=== PATIENT | male | born 1985 | race Two or more races ===

== ENCOUNTER 2017-03-09 08:10 | Emergency (ER) | payer OTHER ==
[~2017-03-09] VITALS: Ht 175.3 cm; Wt 60.8 kg
[2017-03-09 08:20] VITALS: BP 115/65
--- NOTE | 2017-03-09 08:46 | NUR ---
PATIENT TO ED DT COUGH AND CONGESTION X 1 WEEK WITH EPISODE OF SOB LAST NIGHT. PATIENT IS AAO4. APPEARS IN NO APPARENT DISTRESS. RESPIRATION EVEN AND UNLABORED. SKIN IS WARM TO TOUCH AND NON DIAPHORETIC. AFEBRILE. VSS
== END 2017-03-09 09:01 | disposition home or self-care (01) ==
LOC: ER 08:11
DX: J45.998 Other asthma (principal); R05 Cough
CPT/HCPCS: 99283; A4606; Z7610

== ENCOUNTER 2019-03-02 23:40 | Emergency (ER) | payer OTHER ==
[~2019-03-02] VITALS: Ht 177.8 cm; Wt 81.6 kg
[2019-03-03] MEDS ORDERED: ALBUTEROL FS 2.5 MG/0.5 ML VIAL.NEB NEB ONE
[2019-03-03] MEDS ORDERED: ALBUTEROL FS 2.5 MG/0.5 ML VIAL.NEB ONE (00:09)
[2019-03-03 01:39] VITALS: BP 120/83
== END 2019-03-03 01:40 | disposition home or self-care (01) ==
LOC: ER 23:41
DX: J30.2 Other seasonal allergic rhinitis (principal); Z88.0 Allergy status to penicillin
CPT/HCPCS: 71045-TC

== ENCOUNTER 2019-03-15 13:45 | Emergency (ER) | payer OTHER ==
[~2019-03-15] VITALS: Ht 175.3 cm; Wt 90.7 kg
--- NOTE | 2019-03-15 14:00 | NUR ---
Pt sent frm urgent care. advised ct scan to r/o pharyngeal abscess. sore throat, fever x 3 days. Pt aaox4, vss, respirations even and unlabored on room air w/ nad. Pt connected to the monitor.
[2019-03-15] MEDS ORDERED: KETOROLAC TROMETHAMINE INJ 30 MG/ML VIAL ONE (14:10)
[2019-03-15 14:14] LABS: BASOPHILS # (AUTO) 0.1 /CMM (0.0-0.2); BASOPHILS % (AUTO) 0.7 % (0.0-2.0); EOSINOPHILS % (AUTO) 4.8 % (0.0-6.0); HEMATOCRIT 43 % (39-51); HEMOGLOBIN 14.1 g/dL (13.5-17.5); LYMPHOCYTES # (AUTO) 1.5 /CMM (0.8-4.8); MEAN CORPUSCULAR HGB CONC 33 g/dl (31.0-36.0); MEAN CORPUSCULAR VOLUME 85 fL (80-96); MONOCYTES # (AUTO) 0.7 /CMM (0.1-1.30); MONOCYTES % (AUTO) 6.4 % (2.0-12.0); NEUTROPHILS # (AUTO) 8.4 /CMM (1.8-8.9); NEUTROPHILS % (AUTO) 75.1 % (43.0-81.0); PLATELET COUNT (AUTO) 387 /CMM (150-450); RED BLOOD CELL COUNT(AUTO) 5.06 MIL/uL (4.5-6.0); WHITE BLOOD COUNT (AUTO) 11.2 K/uL (4.3-11.0)
[2019-03-15 14:25] LABS: CALCIUM, SERUM 8.8 mg/dL (8.5-10.1); POTASSIUM 4.2 mmol/L (3.5-5.1)
[2019-03-15] MEDS ORDERED: KETOROLAC TROMETHAMINE INJ 60 MG/2 ML VIAL IM ONE (14:30)
[2019-03-15] MEDS ORDERED: CT SWABBABLE VALVE TRANS SET 1 EA INFUS.SET MC ONE (14:42)
[2019-03-15] MEDS ORDERED: IV NS 0.9% 250 ML IV ONE (14:42)
[2019-03-15] MEDS ORDERED: IOHEXOL-300 100 ML VIAL IV ONE (14:42)
--- NOTE | 2019-03-15 14:55 | NUR ---
PT TAKEN TO CT
--- NOTE | 2019-03-15 15:15 | NUR ---
pt back from ct
--- NOTE | 2019-03-15 16:14 | NUR ---
Patient discharged to home in stable condition. Written and verbal after care instructions given. Patient verbalizes understanding of instruction.
[2019-03-15 16:16] VITALS: BP 118/74
== END 2019-03-15 16:17 | disposition home or self-care (01) ==
LOC: ER 13:46
DX: J03.90 Acute tonsillitis, unspecified (principal); J45.909 Unspecified asthma, uncomplicated; M54.2 Cervicalgia; Z88.0 Allergy status to penicillin
CPT/HCPCS: 36415; 70491; 80048; 85025; 96372; 99284; J1885; J7050; Q9967

== ENCOUNTER 2019-03-17 00:22 | Emergency (ER) | payer OTHER ==
[~2019-03-17] VITALS: Ht 175.3 cm; Wt 90.7 kg
--- NOTE | 2019-03-17 00:45 | NUR ---
PT PRESENTED TO THE ER WITH A C/O SORE THROAT. PT WAS DX WITH ACUTE TONSILITIS 2 DAYS AGO. PT IS UNABLE TO SPEAK WITHOUT PAIN AND SOUNDS HOARSE. PT STATED THAT HE HAS TRIED TO GARGLE WITH SALT WATER WITH NO RELIEF. PT AMBULATED TO ER #4 WITH A STEADY GAIT. VSS.
[2019-03-17] MEDS ORDERED: CLINDAMYCIN 900 MG/6 ML VIAL ONE (00:58)
[2019-03-17] MEDS ORDERED: methylPREDNISolone SOD SUCC 125 MG/2ML VIAL ONE (00:58)
[2019-03-17] MEDS ORDERED: methylPREDNISolone SOD SUCC 125 MG/2ML VIAL IV ONE (01:00)
[2019-03-17] MEDS ORDERED: CLINDAMYCIN 900 MG in IV D5W 100 ML IV ONE (01:00)
[2019-03-17] MEDS ORDERED: DEXAMETHASONE SOD PHOSPHATE 10 MG/ML VIAL ONE (01:07)
[2019-03-17] MEDS ORDERED: DEXAMETHASONE SOD PHOSPHATE 4 MG/ML VIAL IM ONE (01:30)
--- NOTE | 2019-03-17 01:50 | NUR ---
IV removed. Catheter intact and site benign. Pressure and 4x4 applied to site. No bleeding noted. Patient discharged to home in stable condition. Written and verbal after care instructions given. Patient verbalizes understanding of instruction AND RX. PT AMBULATED OUT WITH A STEADY GAIT. VSS.
[2019-03-17 02:13] VITALS: BP 129/87
== END 2019-03-17 01:50 | disposition home or self-care (01) ==
LOC: ER 00:24
DX: J03.90 Acute tonsillitis, unspecified (principal); J45.909 Unspecified asthma, uncomplicated; Z88.0 Allergy status to penicillin
CPT/HCPCS: 96365; 96375; 99283; J1100; J2930; J3490; J7060 ×2

== ENCOUNTER 2022-07-13 09:10 | Emergency (ER) | payer OTHER ==
[~2022-07-13] VITALS: Ht 175.3 cm; Wt 77.1 kg
[2022-07-13 09:17] VITALS: BP 117/68
[2022-07-13] MEDS ORDERED: LIDOCAINE VISCOUS 2% UD 15 ML UDC ONE (09:47)
[2022-07-13] MEDS ORDERED: KETOROLAC TROMETHAMINE 15 MG/ML VIAL ONE (09:47)
[2022-07-13] MEDS ORDERED: DEXAMETHASONE SOD PHOSPHATE 10 MG/ML VIAL ONE (09:47)
[2022-07-13] MEDS ORDERED: KETOROLAC TROMETHAMINE INJ 60 MG/2 ML VIAL IM ONE (10:00)
[2022-07-13] MEDS ORDERED: DEXAMETHASONE SOD PHOSPHATE 10 MG/ML VIAL IM ONE (10:00)
[2022-07-13] MEDS ORDERED: LIDOCAINE VISCOUS 2% UD 15 ML UDC MM ONE (10:00)
[2022-07-13 11:28] LABS: MONOTEST POSITIVE (NEGATIVE)
[2022-07-13] MEDS ORDERED: ALBU6.7H9 INH (11:30)
[2022-07-13] MEDS ORDERED: CLIN300C12 PO (11:30)
[2022-07-13] MEDS ORDERED: BENZ1LOZ58 PO (11:33)
== END 2022-07-13 11:57 | disposition home or self-care (01) ==
LOC: ER 09:22
DX: J02.0 Streptococcal pharyngitis (principal); J45.909 Unspecified asthma, uncomplicated; Z79.899 Other long term (current) drug therapy; Z88.0 Allergy status to penicillin
CPT/HCPCS: 99284; 96372 ×2; 87081; 86308; 36415; 87880; 87110; 87491; 87591; J1100; J1885; 86403-TC

== ENCOUNTER 2022-08-14 16:22 | Emergency (ER) | payer OTHER ==
[~2022-08-14] VITALS: Ht 175.3 cm; Wt 70.8 kg
[~2022-08-14 16:22] MED LIST: ALBU6.7H9 INH; BENZ1LOZ58 PO; CLIN300C12 PO
--- NOTE | 2022-08-14 16:46 | NUR ---
SORETHROAT FOR 1 WEEK NOW. COULDNT OPEN HIS MOUTH DUE TO PAIN
[2022-08-14] MEDS ORDERED: KETOROLAC TROMETHAMINE INJ 30 MG/ML VIAL ONE (17:13)
[2022-08-14] MEDS ORDERED: DEXAMETHASONE SOD PHOSPHATE 10 MG/ML VIAL ONE (17:13)
--- NOTE | 2022-08-14 17:24 | NUR ---
STREP SWAB TAKEN SENT TO LAB
[2022-08-14] MEDS ORDERED: KETOROLAC TROMETHAMINE INJ 30 MG/ML VIAL IM ONE (17:30)
[2022-08-14] MEDS ORDERED: DEXAMETHASONE SOD PHOSPHATE 4 MG/ML VIAL IM ONE (17:30)
--- NOTE | 2022-08-14 19:16 | NUR ---
STREP SWAB RESULTED . MADE AWARE
[2022-08-14] MEDS ORDERED: ALBU18HF2 INH (19:27)
--- NOTE | 2022-08-14 19:36 | NUR ---
Patient discharged to home in stable condition. Written and verbal after care instructions given. Patient verbalizes understanding of instruction. Pt ambulatory with a steady gait
[2022-08-14 19:37] VITALS: BP 112/66
== END 2022-08-14 19:37 | disposition home or self-care (01) ==
LOC: ER 16:28
DX: B27.90 Infectious mononucleosis, unspecified without complication (principal); J45.909 Unspecified asthma, uncomplicated; Z88.0 Allergy status to penicillin
CPT/HCPCS: 99284; 96372 ×2; 87880; J1100; J1885; 86403-TC

== ENCOUNTER 2022-08-18 06:12 | Emergency (ER) | payer OTHER ==
[~2022-08-18] VITALS: Ht 175.3 cm; Wt 70.8 kg
[~2022-08-18 06:12] MED LIST changes: +ALBU18HF2 INH
--- NOTE | 2022-08-18 06:48 | NUR ---
RN NOTE bib self c/o sore throat, states dx with mono "few days ago", wanting "relief." pt in bed, resting, with no s/sx of acute respi distress noted at this time. pt is a/o x 4, able to verbalize needs. vitals checked. awaiting md orders.
[2022-08-18] MEDS ORDERED: DEXAMETHASONE SOD PHOSPHATE 10 MG/ML VIAL IV ONE (07:00)
[2022-08-18] MEDS ORDERED: IV NS 0.9% 1,000 ML IV ONE (07:00)
[2022-08-18] MEDS ORDERED: KETOROLAC TROMETHAMINE INJ 30 MG/ML VIAL IV ONE (07:00)
--- NOTE | 2022-08-18 07:03 | NUR ---
RN NOTE STREP SWAB DONE. SENT TO LAB
[2022-08-18] MEDS ORDERED: CT SWABBABLE VALVE TRANS SET 1 EA INFUS.SET MC ONE (07:07)
[2022-08-18] MEDS ORDERED: IOHEXOL-300 100 ML VIAL IV ONE (07:07)
[2022-08-18] MEDS ORDERED: IV NS 0.9% 250 ML IV ONE (07:07)
[2022-08-18 07:43] LABS: BASOPHILS # (AUTO) 0.1 K/uL (0.0-0.2); BASOPHILS % (AUTO) 0.6 % (0.0-2.0); EOSINOPHILS % (AUTO) 4.8 % (0.0-6.0); HEMATOCRIT 42 % (39-51); HEMOGLOBIN 13.7 g/dL (13.5-17.5); LYMPHOCYTES # (AUTO) 1.6 K/uL (0.8-4.8); LYMPHOCYTES % (AUTO) 18.9 % (20.0-44.0); MEAN CORPUSCULAR HGB CONC 33 g/dl (31.0-36.0); MEAN CORPUSCULAR VOLUME 87 fL (80-96); MONOCYTES # (AUTO) 0.7 K/uL (0.1-1.30); MONOCYTES % (AUTO) 8.4 % (2.0-12.0); NEUTROPHILS # (AUTO) 5.5 K/uL (1.8-8.9); NEUTROPHILS % (AUTO) 67.3 % (43.0-81.0); PLATELET COUNT (AUTO) 408 K/uL (150-450); RED BLOOD CELL COUNT(AUTO) 4.88 MIL/uL (4.5-6.0); WHITE BLOOD COUNT (AUTO) 8.2 K/uL (4.3-11.0)
[2022-08-18 07:51] LABS: CALCIUM, SERUM 9.2 mg/dL (8.5-10.1); POTASSIUM 4.9 mmol/L (3.5-5.1)
[2022-08-18] MEDS ORDERED: KETOROLAC TROMETHAMINE 15 MG/ML VIAL ONE (08:07)
[2022-08-18] MEDS ORDERED: DEXAMETHASONE SOD PHOSPHATE 10 MG/ML VIAL ONE (08:07)
[2022-08-18 08:18] VITALS: BP 110/66
[2022-08-18 08:51] LABS: MONOTEST NEGATIVE (NEGATIVE)
[2022-08-18] MEDS ORDERED: CEPH500C2 PO (09:01)
[2022-08-18] MEDS ORDERED: IBUP-1955 PO (09:01)
[2022-08-18] MEDS ORDERED: BENZ1LOZ58 PO (09:01)
[2022-08-18] MEDS ORDERED: PRED20TA PO (09:01)
[2022-08-18] MEDS ORDERED: DOXY100C2 PO (09:05)
--- NOTE | 2022-08-18 09:24 | NUR ---
IV removed. Catheter intact and site benign. Pressure and 4x4 applied to site. No bleeding noted.Patient discharged to home in stable condition. Written and verbal after care instructions given. Patient verbalizes understanding of instruction.
== END 2022-08-18 09:25 | disposition home or self-care (01) ==
LOC: ER 06:14
DX: J36 Peritonsillar abscess (principal); J45.909 Unspecified asthma, uncomplicated; Z79.899 Other long term (current) drug therapy; Z88.0 Allergy status to penicillin
CPT/HCPCS: 99285; 96374; 70491; 96361; 96375; 85025; 80048; 86308; 36415; 87880; J1100; J7030; J7050; Q9967; J1885; 86403-TC

== ENCOUNTER 2024-10-25 18:52 | Emergency (ER) | payer OTHER ==
[~2024-10-25 18:52] MED LIST changes: +CEPH500C2 PO; +DOXY100C2 PO; +IBUP-1955 PO; +PRED20TA PO
== END 2024-10-25 20:35 | disposition left against medical advice (07) ==
LOC: ER 18:58
DX: H00.019 Hordeolum externum unspecified eye, unspecified eyelid (principal); Z53.21 Procedure and treatment not carried out due to patient leaving prior to being seen by health care provider